=== PATIENT | female | born 1990 | race Two or more races ===

== ENCOUNTER 2023-09-19 06:05 | Day surgery (SDC) | payer OTHER ==
[2023-09-17 09:30] LABS: HEMATOCRIT 34.4 % (36.0-45.00); HEMOGLOBIN 11.8 g/dL (12.0-15.00); MEAN CELL VOLUME 83.4 fL (80.00-100.00); MEAN CORPUSCULAR HEMOGLOBIN 28.5 pg (27.00-32.0); MEAN CORPUSCULAR HGB CONC 34.2 g/dl (32.0-36.0); PLATELET COUNT 456 K/uL (150-450); RED BLOOD COUNT 4.13 M/uL (4.00-6.00); RED CELL DISTRIBUTION WIDTH 13.3 % (11.5-14.5)
[2023-09-17 09:58] LABS: INR 0.97; PARTIAL THROMBOPLASTIN TIME 27.6 SECONDS (22.0-34.0); PROTHROMBIN TIME 10.2 SECONDS (9.0-11.5)
[2023-09-17 09:59] LABS: CALCIUM 9.4 mg/dL (8.5-10.1); CREATININE SERUM 0.75 mg/dL (0.55-1.02); GFR 87.94; POTASSIUM 4.35 mEq/L (3.5-5.1)
[2023-09-17 12:47] LABS: PH,URINE 5.5 (5.0-8.0); URINE APPEARANCE Cloudy; URINE BILIRRUBIN Negative (NEGATIVE); URINE BLOOD Moderate; URINE COLOR Yellow; URINE GLUCOSE Negative (NEGATIVE); URINE LEUKOCYTE Moderate; URINE NITRATE Negative; URINE PROTEIN 30 (NEGATIVE); URINE UROBILINOGEN 0.2 E.U./dl
[2023-09-17 12:51] LABS: URINE RBC 209.3 uL (0.0-20.8); URINE WBC 116.4 uL (0.0-23.2)
[2023-09-17 14:37] LABS: URINE EPITHELIAL CELLS > 201.7 uL (0.0-38.8)
[~2023-09-19] VITALS: Ht 165.1 cm; Wt 75.7 kg
[~2023-09-19 06:05] MED LIST: CIPRO500 MG PO; [UNRECOGNIZED DRUG - OTHER] PO
== END 2023-09-19 17:35 | disposition home or self-care (01) ==
LOC: CIR.AMB 06:05
PROVIDERS: ATTEND Urology
DX: N80.A0 Endometriosis of bladder, unspecified depth (principal); N13.30 Unspecified hydronephrosis; Z20.822 Contact with and (suspected) exposure to COVID-19